=== PATIENT | female | born 1990 | race African-American/Black ===

== ENCOUNTER 2018-05-19 15:20 | Emergency (ER) | payer SELFPAY ==
[~2018-05-19] VITALS: Ht 149.9 cm; Wt 74.8 kg
[2018-05-19] MEDS ORDERED: NKM (15:33)
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
[2018-05-19 15:43] VITALS: BP 116/64
[2018-05-19] MEDS ORDERED: Ketorolac 30mg Inj IM ONE (16:00)
[2018-05-19] MEDS ORDERED: Methocarbamol 500mg tab ORAL ONE (16:00)
[2018-05-19] MEDS ORDERED: LIDOCAINE700 M1 TP (16:02)
[2018-05-19] MEDS ORDERED: ROBAXIN500 MG PO (16:02)
[2018-05-19] MEDS ORDERED: IBUPROFEN600 MG ORAL (16:02)
[2018-05-19] MEDS ORDERED: TRAMADOL HCL50 MG ORAL (16:02)
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
[2018-05-19 16:31] VITALS: BP 122/68
--- NOTE | 2018-05-19 16:32 | NUR ---
ED Nurse Note: PT SITTING PEACEFULLY IN BED IN NAD. AOX4. PRESCRIPTIONS AND DISCHARGE PAPERWORK EXPLAINED TO PT. PT VERBALIZES UNDERSTANDING AND ALL QUESTIONS ANSWERED. PRESCRIPTIONS AND DISCHARGE PAPERWORK GIVEN TO PT AND ID WRISTBAND REMOVED. PT WALKED OUT OF ER WITH STEADY GAIT AND ALL BELONGINGS.
== END 2018-05-19 16:20 | disposition home or self-care (01) ==
LOC: EMR 16:00
DX: T14.8XXA Other injury of unspecified body region, initial encounter (principal); V43.52XA Car driver injured in collision with other type car in traffic accident, initial encounter; Y92.410 Unspecified street and highway as the place of occurrence of the external cause
CPT/HCPCS: 96372; 99283